=== PATIENT | female | born 1975 | race Caucasian/White ===

== ENCOUNTER 2017-08-18 11:57 | Emergency (ER) | payer OTHER ==
--- NOTE | 2017-08-18 12:23 | Emergency Department Record ---
History of Present Illness - General Chief complaint: Female Urogenital Problem Stated complaint: PAINFUL URINATION/PRESSURE Time Seen by Provider: 08/18/17 12:10 Source: Patient Mode of Arrival: Ambulatory Limitations: No limitations - History of Present Illness Initial comments: The patient is here due to chronic dysuria for 9 weeks. She had a CHUY 9 weeks ago and has had problems since with dysuria and urinary urgency. She also feels she may have some pelvic cramping at times. She has seen her surgeon and was treated for a UTI recently and did also have her urine rechecked after and was told it was normal. She does have a Urology appointment in 10 days. There has been no nausea, vomiting, diarrhea or fever. MD Complaint: Dysuria Onset/Timin -: Week(s) Severity: Moderate Severity scale (1-10): 2 Quality: Aching, Burning Consistency: Constant Associated Symptoms: Abdominal pain, Dysuria - Related Data Home Medications Medication Instructions Recorded Confirmed Last Taken Omeprazole 40 mg PO DAILY 08/18/17 08/18/17 08/18/17 Allergies Allergy/AdvReac Type Severity Reaction Status Date / Time No Known Drug Allergies Allergy Verified 08/18/17 12:11 Travel Screening - Travel/Exposure Within Last 30 Days Have you traveled within the last 30 days?: No - Travel/Exposure Within Last Year Have you traveled outside the [place] in the last year?: No - Additonal Travel Details Have you been exposed to anyone with a communicable illness?: No - Travel Symptoms Symptom Screening: None Review of Systems Constitutional: Denies: Chills, Fever Eyes: Denies: Eye discharge ENT: Denies: Congestion Respiratory: Denies: Cough, Dyspnea Past Medical History - SOCIAL HISTORY Smoking Status: Never smoker Alcohol Use: Occasional Drug Use: None - RESPIRATORY Hx Respiratory Disorders: No - CARDIOVASCULAR Hx Cardio Disorders: No - NEURO Hx Neuro Disorders: No - GI Hx Reflux: Yes - Hx Kidney Stones: Yes - ENDOCRINE Hx Diabetes: No Hx Thyroid Disease: No - MUSCULOSKELETAL Hx Musculoskeletal Disorders: No - PSYCH Hx Psych Problems: No - HEMATOLOGY/ONCOLOGY Hx Hematology/Oncology Disorders: No Hx Cancer: No Family Medical History Any Significant Family History?: Yes Physical Exam - General General Appearance: Alert, Oriented x3, Cooperative, No acute distress (The patient appears very healthy at this time.) - Head Head exam: Atraumatic, Normocephalic - Eye Eye exam: Normal appearance, PERRL - Neck Neck exam: Normal inspection, Full ROM. negative: Tenderness - Respiratory Respiratory exam: Normal lung sounds bilaterally. negative: Respiratory distress - Cardiovascular Cardiovascular Exam: Regular rate, Normal rhythm, Normal heart sounds - GI/Abdominal GI/Abdominal exam: Soft, Normal bowel sounds. negative: Tenderness - Extremities Extremities exam: Normal inspection, Full ROM, Normal capillary refill. negative: Tenderness - Back Back exam: Denies: CVA tenderness (R), CVA tenderness (L) Course Vital Signs 08/18/17 11:59 Temperature 97.5 F L Pulse Rate 72 Respiratory 16 Rate Blood Pressure 119/66 Pulse Ox 98 - Reevaluation(s) Reevaluation #1: The patient is doing very well at this time and I did go over her test results with her. I did discuss the need to continue the Alleve at home and to see the Urologist as directed. She is to see her PCP if needed and return to the ER if worse. 08/18/17 13:54 Medical Decision Making - Data Complexity MDM Data: Labs Ordered and/or Reviewed, X-Ray Ordered and/or Reviewed - Lab Data Result diagrams: 08/18/17 12:45 08/18/17 12:45 - Radiology Data Radiology results: Report reviewed (CT: Neg for any acute abnormality.) Disposition Disposition: Discharge Clinical Impression: Dysuria Disposition: Home, Self-Care Condition: (2) Stable Instructions: Dysuria (ED) Additional Instructions: Please see the Urologist as planned. Please continue your home pain medicine. Please return to the ER for any worsening pain, any fever, vomiting, or blood in the urine. Forms: Patient Portal Access Time of Disposition: 13:54 Quality - Quality Measures Quality Measures: N/A - Blood Pressure Screening View Details: Yes Does Patient Have Any of the Following: No Blood Pressure Classification: Pre-Hypertensive BP Reading Systolic Measurement: 124 Diastolic Measurement: 74 Screening for High Blood Pressure: < Pre-Hypertensive BP, F/U Documented > [ [id number]] Pre-Hypertensive Follow-up Interventions: Referral to alternative/primary care provider.
[2017-08-18 12:53] LABS: BASO % 0.2 % (0-6); EOS % 1.5 % (0-6); GRAN % 67.4 % (47-80); HEMATOCRIT 39.6 % (35.0-47.0); HEMOGLOBIN 12.9 gm/dl (11.6-16.0); LYMPH % 21.1 % (16-45); MEAN CORPUSCULAR HGB CONC 32.6 g/dl (32-36); MEAN PLATELET VOLUME 10.3 fl (7.4-10.4); MONO % 9.8 % (0-9); PLATELET COUNT 272 K/uL (130-400); RED BLOOD COUNT 4.45 M/uL (3.80-5.40); RED CELL DISTRIBUTION WIDTH 13.3 % (11.5-14.5); WHITE BLOOD COUNT W/O DIFF 5.8 K/uL (4.2-12.2)
[2017-08-18 13:01] LABS: URINE APPEARANCE CLEAR; URINE BILIRUBIN NEGATIVE (NEGATIVE); URINE BLOOD TRACE-I (NEGATIVE); URINE COLOR YELLOW; URINE GLUCOSE (UA) NEGATIVE (NEGATIVE); URINE KETONE NEGATIVE (NEGATIVE); URINE LEUKOCYTE ESTERASE NEGATIVE (NEGATIVE); URINE NITRITE NEGATIVE (NEGATIVE); URINE PROTEIN NEGATIVE (NEGATIVE); URINE UROBILINOGEN 0.2 E.U./dL (0.20 - 1.00)
[2017-08-18 13:03] LABS: BLOOD UREA NITROGEN 15 mg/dL (6-20); CREATININE 0.6 mg/dL (0.5-0.9); EST GLOMERULAR FILTRATION RATE > 60 mL/min
[2017-08-18 13:04] LABS: TOTAL PROTEIN 7.4 g/dL (6.6-8.7)
[2017-08-18 13:05] LABS: URINE BACTERIA FEW; URINE MUCUS 2+; URINE SQUAMOUS EPITHELIAL CELL 0 - 2 /hpf; URINE WBC 0 - 2 (0-2/hpf)
[2017-08-18 13:06] LABS: GLUCOSE,RANDOM 87 mg/dL (74-109)
[2017-08-18 13:08] LABS: ALT/SGPT 15 U/L (<33); AST/SGOT 18 U/L (10.0-35.0)
[2017-08-18 13:09] LABS: ALB/GLOB RATIO 1.2 (1.1-1.8); ALBUMIN 4.1 g/dL (4.0-5.0); ALKALINE PHOSPHATASE 58 U/L (35-104)
--- NOTE | 2017-08-19 19:25 | CT SCAN REPORT ---
EXAM: CT SCAN ABDOMEN/PELVIS WO CONTRAST HISTORY: RIGHT FLANK PAIN SINCE CATHETERIZATION FOR HYSTERECTOMY NINE WEEKS AGO. TECHNIQUE: Routine helical CT examination of the abdomen and pelvis is performed without oral or intravenous contrast administration for the express purpose of evaluation the renal collecting systems for obstructing calculi. Lack of oral and IV contrast utilization limits evaluation of the bowel and solid viscera, respectively. COMPARISON: CT abdomen and pelvis without contrast dated 05/01/2012. FINDINGS: There is minimal dependent atelectasis in each lung base. The lung bases are otherwise clear and there is no pleural or pericardial effusion. The heart is not enlarged. The liver, spleen, pancreas, and adrenal glands are normal in appearance. The gallbladder is contracted limiting its evaluation. No biliary ductal dilatation is seen. The kidneys are normal in size, position, and are smoothly marginated. There is a 2-3 mm nonobstructing calculus redemonstrated in the mid left kidney. No other nephrolithiasis nor renal mass. The renal collecting systems are normal in caliber throughout and there is no evidence of ureteral calculus. No intrinsic urinary bladder abnormality is seen. The uterus is surgically absent. No pelvic mass, lymphadenopathy, or free pelvic fluid. No gross bowel dilatation nor bowel wall thickening. The appendix is visualized and normal in appearance. A tiny fat-filled umbilical hernia is present. No lytic or blastic bone lesion. There are mild degenerative disc/endplate changes involving the lower lumbar spine. IMPRESSION: 1. STATUS POST HYSTERECTOMY. 2. A 2-3 MM NONOBSTRUCTING CALCULUS IN THE LEFT MID KIDNEY. NO EVIDENCE OF OBSTRUCTIVE UROPATHY. 3. CONTRACTED GALLBLADDER. 4. NORMAL APPENDIX. NO EVIDENCE OF ACUTE INTRAABDOMINAL NOR INTRAPELVIC PROCESS. JOB NUMBER: [id number] [facility]
== END 2017-08-18 14:17 | disposition home or self-care (01) ==
LOC: ER 11:57
DX: R30.0 Dysuria (principal); R10.2 Pelvic and perineal pain
CPT/HCPCS: 74176; 80053; 81001; 85025; 99283; 99284